=== PATIENT | female | born 1955 | race Caucasian/White ===

== ENCOUNTER → 2016-11-10 | Outpatient (CLI) | payer OTHER ==
[~2016-11-10] VITALS: Ht 165.1 cm; Wt 90.7 kg
[~2016-11-10] MED LIST: ALPH1CAP PO; ASPI81TA85 PO; ATOR1TAB21 PO; CARV3.12 PO; CHLO25TA PO; FURO40TA2 PO; LISI-538 PO; NS 1,000 ML IV SCH; PROP80TA PO; PROPOFOL 200 MG/20 ML VIAL As Ordered ONE; VITA500055 PO
--- NOTE | 2016-11-10 14:14 | ROOR ---
Patient Name: Corinne Rivera Procedure Date: 11/10/2016 1:48 PM Date of : 1955 Age: 60 Room: [facility] Gender: Female Note Status: Finalized Procedure: Colonoscopy to Cecum + ileoscopy + Biopsies Indications: Lower abdominal pain, Change in bowel habits Providers: Huy Washington MD Referring MD: Huy Barrow MD Requesting Provider: Medicines: Monitored Anesthesia Care Complications: No immediate complications. Procedure: Pre-Anesthesia Assessment: - The heart rate, respiratory rate, oxygen saturations, blood pressure, adequacy of pulmonary ventilation, and response to care were monitored throughout the procedure. The Colonoscope was introduced through the anus and advanced to the cecum, identified by appendiceal orifice and ileocecal valve. The colonoscopy was performed without difficulty. The patient tolerated the procedure well. The quality of the bowel preparation was excellent. Findings: The perianal and digital rectal examinations were normal. Non-bleeding internal hemorrhoids were found during retroflexion. The hemorrhoids were small and Grade I (internal hemorrhoids that do not prolapse). Scattered small-mouthed diverticula were found in the recto-sigmoid colon, sigmoid colon and descending colon. The terminal ileum appeared normal. Biopsies for histology were taken with a cold forceps from the ascending colon, transverse colon and descending colon for evaluation of microscopic colitis. For hemostasis, three hemostatic clips were successfully placed (MR conditional) in the transverse colon. There was no bleeding at the end of the procedure. The exam was otherwise without abnormality on direct and retroflexion views. Impression: - Non-bleeding internal hemorrhoids. - Diverticulosis in the recto-sigmoid colon, in the sigmoid colon and in the descending colon. - The examined portion of the ileum was normal. - The examination was otherwise normal on direct and retroflexion views. - Biopsies were taken with a cold forceps from the ascending colon, transverse colon and descending colon for evaluation of microscopic colitis. - Three hemostatic clips were successfully placed (MR conditional) in the transverse colon. - The exam was otherwise normal to the cecum. - The examined portion of the ileum was normal. Recommendation: - Patient has a contact number available for emergencies. The signs and symptoms of potential delayed complications were discussed with the patient. Return to normal activities tomorrow. Written discharge instructions were provided to the patient. - High fiber diet. - Discharge patient to home. - Await pathology results. - Telephone GI clinic for pathology results in 1 week. - Check Portal Online for Path Results.([email or web address]) - Return to referring physician. - The findings and recommendations were discussed with the patient's family. Huy Washington MD Huy Washington MD 11/10/2016 2:13:48 PM This report has been signed electronically. Number of Addenda: 0 Note Initiated On: 11/10/2016 1:48 PM Estimated Blood Loss: Estimated blood loss: none.
[2016-11-10 14:43] VITALS: BP 146/77
== END | disposition home or self-care (01) ==
LOC: M OPP 12:05
PROVIDERS: ATTEND Internal Medicine Gastroenterology
DX: R19.4 Change in bowel habit (principal); R10.30 Lower abdominal pain, unspecified; K64.0 First degree hemorrhoids; K57.30 Diverticulosis of large intestine without perforation or abscess without bleeding; E11.9 Type 2 diabetes mellitus without complications; K58.9 Irritable bowel syndrome, unspecified; Z88.0 Allergy status to penicillin; Z79.82 Long term (current) use of aspirin; Z79.899 Other long term (current) drug therapy

== ENCOUNTER → 2016-12-17 | Outpatient (CLI) | payer OTHER ==
[~2016-12-17] MED LIST changes: -NS 1,000 ML IV SCH; -PROPOFOL 200 MG/20 ML VIAL As Ordered ONE
--- NOTE | 2016-12-17 14:47 | REPMRS ---
Patient History The patient states she had a clinical breast exam in Patient is postmenopausal and has history of other cancer at age 56. Family history of breast cancer in mother under age 50. Digital Woman Screen Mammo: December 17, 2016 - Exam #: [id number] Bilateral CC and MLO view(s) were taken. Technologist: Maribell Toro, Technologist Prior study comparison: November 28, 2015, digital woman screen mammo performed at [facility]. November 19, 2014, digital woman screen mammo performed at [facility] to [facility]. FINDINGS: There are scattered fibroglandular densities. There has been no change in the appearance of the mammogram from the prior studies. There is a mild amount of residual fibroglandular tissue which is fairly symmetric. There is no interval development of dominant mass, architectural distortion, or clustered microcalcification suggestive of malignancy. ASSESSMENT: BI-RADS/ACR category 1 mammogram. Negative. Recommendation Routine screening mammogram in 1 year (for women over age 40). This mammogram was interpreted with the aid of an FDA-approved computer-aided dectection system. Electronically Signed By: Ricardo Cárdenas MD 12/17/16 [id number]
== END ==
LOC: M WHC 13:25
PROVIDERS: ATTEND Nurse Practitioner Family
DX: Z12.31 Encounter for screening mammogram for malignant neoplasm of breast (principal)

== ENCOUNTER → 2018-01-19 | Outpatient (CLI) | payer OTHER | LOC: M WHC 08:53 | DX: Z12.31 Encounter for screening mammogram for malignant neoplasm of breast (principal); Z80.3 Family history of malignant neoplasm of breast | CPT/HCPCS: 77067 ==

== ENCOUNTER → 2019-01-23 | Outpatient (CLI) | payer OTHER ==
[~2019-01-23] MED LIST changes: -ALPH1CAP PO; +ALPH200C2 PO
--- NOTE | 2019-01-23 15:44 | REPMRS ---
Patient History The patient states she had a clinical breast exam in 01/2019. Patient is postmenopausal and has history of other cancer at age 56. Family history of breast cancer under age 50 in mother. Taking unspecified hormones for 1 year beginning at age 62. 3D TOMOSYNTHESIS WAS PERFORMED. The [facility] lifetime risk for breast cancer is 14.2%. Digital Woman Screen Mammo: January 23, 2019 - Exam #: [id number] Bilateral CC and MLO view(s) were taken. Technologist: Yandy Lara Technologist Prior study comparison: January 19, 2018, bilateral digital woman screen mammo performed at [facility]. December 17, 2016, digital woman screen mammo performed at [facility] [employer] [facility]. FINDINGS: There are scattered fibroglandular densities. There has been no change in the appearance of the mammogram from the prior studies. There is a mild amount of residual fibroglandular tissue which is fairly symmetric. There is no interval development of dominant mass, architectural distortion, or clustered microcalcification suggestive of malignancy. Assessment: BI-RADS/ACR category 1 mammogram. Negative Mammogram. Recommendation Routine screening mammogram in 1 year (for women over age 40). This mammogram was interpreted with the aid of an FDA-approved computer-aided dectection system. Electronically Signed By: Ricardo Cárdenas MD 01/23/19 [id number]
== END ==
LOC: M WHC 12:54
PROVIDERS: ATTEND Nurse Practitioner Women's Health
DX: Z12.31 Encounter for screening mammogram for malignant neoplasm of breast (principal); Z80.3 Family history of malignant neoplasm of breast; Z78.0 Asymptomatic menopausal state; Z85.9 Personal history of malignant neoplasm, unspecified; Z79.818 Long term (current) use of other agents affecting estrogen receptors and estrogen levels

== ENCOUNTER → 2019-03-23 | Outpatient (CLI) | payer OTHER ==
--- NOTE | 2019-03-23 11:13 | REP ---
HIDA SCAN WITH GALLBLADDER EJECTION FRACTION: Following the intravenous administration of 6.4 millicuries of technetium 99m Mebrofenin, multiple images of the right upper quadrant are performed every 5 minutes for a period of 1 hour. The gallbladder is visualized at 15 minutes post injection and there is biliary to bowel transit at 30-35 minutes post injection with no scintigraphic evidence of cholecystitis. At the 1-hour jackie 8 ounces of Ensure Enlive is ingested and further imaging performed for 1 hour. Gallbladder activity is measured. The gallbladder ejection fraction is 74%, which is normal. IMPRESSION: Normal gallbladder ejection fraction. Electronically Signed by Ricardo Cárdenas MD 03/23/2019 01:17 P
== END ==
LOC: M RAD 07:48
PROVIDERS: ATTEND Nurse Practitioner Family
DX: R10.11 Right upper quadrant pain (principal); K90.49 Malabsorption due to intolerance, not elsewhere classified
CPT/HCPCS: 78227; A9537; J2805

== ENCOUNTER → 2020-04-22 | Outpatient (CLI) | payer OTHER ==
[~2020-04-22] MED LIST changes: -ASPI81TA85 PO; +ASPI81TA86 PO
--- NOTE | 2020-04-28 10:30 | REP ---
BILATERAL SCREENING MAMMOGRAM WITH 3D TOMOSYNTHESIS: 04/22/20 Family history of breast cancer is mother under age 50. Entire lifetime risk of breast cancer 13.7%. COMPARISON: Mammogram 01/23/19 as well as other prior exams. ML and CC views of both breasts performed with 3D tomosynthesis. Mild to moderate scattered fibroglandular tissue is scattered bilaterally. Volpara breast density is B. On the right CC view there is smoothly marginated nodular density medially and somewhat anteriorly measuring 5mm in diameter. This is not seen on the MLO view. Otherwise no mass or clustered microcalcifications are seen bilaterally. IMPRESSION: ACR 0, Incomplete. Smoothly marginated 5mm nodular density medial right breast only seen on the CC view. Recommend spot compression view right breast on the CC projection at that location, as well as a right ML tomographic sequence. Ultrasound may also be necessary. This mammogram was interpreted with the aide of an FDA approved computer rated detection system. Patient states her last clinical breast exam was September 2019. Send letter 0. MTDD
== END ==
LOC: M WHC 12:47
PROVIDERS: ATTEND Nurse Practitioner Family
DX: N63.10 Unspecified lump in the right breast, unspecified quadrant (principal); R92.2 Inconclusive mammogram; Z80.3 Family history of malignant neoplasm of breast

== ENCOUNTER → 2020-04-29 | Outpatient (CLI) | payer OTHER ==
--- NOTE | 2020-05-02 11:18 | REP ---
DIGITAL DIAGNOSTIC UNILATERAL RIGHT BREAST MAMMOGRAPHY: 3-VIEWS HISTORY: Screening mammography 04/22/2020 was BI-RADS Category 0 because of a possible nodular neodensity in the medial aspect of the right mid breast seen only on the craniocaudad view. Diagnostic imaging was recommended. Comparison is also made with 01/23/2019 and 01/19/2018 prior mammograms of the left breast. FINDINGS: Magnified focal spot compression CC, true ML, and MLO views of the right breast demonstrate that the area in question compresses away the stromal elements, which are unchanged from the 2018 prior mammographic images. No nodular neodensity is visible. No architectural distortion is seen. Scattered fibroglandular elements are again noted. IMPRESSION: BI-RADS Category 1 negative findings. Repeat bilateral screening mammography recommended in one year. BIRADS 1: BI-RADS/ACR category 1 mammogram. Negative mammogram. This mammogram was interpreted with the aid of an FDA approved computer-assisted detection system. Patient letter: M1. [facility] lifetime risk of breast cancer is 13.7%. [facility]
== END ==
LOC: M WHC 15:34
PROVIDERS: ATTEND Nurse Practitioner Family
DX: R92.8 Other abnormal and inconclusive findings on diagnostic imaging of breast (principal)

== ENCOUNTER → 2021-06-08 | Outpatient (CLI) | payer OTHER ==
[~2021-06-08] MED LIST changes: -LISI-538 PO; +LISI20TA33 PO
--- NOTE | 2021-06-08 13:12 | REPMRS ---
Patient History The patient states she has not had a clinical breast exam in over a year. Patient is postmenopausal and has history of other cancer at age 56. Family history of breast cancer at age 47 in mother. Taking unspecified hormones for 1 year beginning at age 62. Tomosynthesis is performed. Volpara breast density is b. [facility] lifetime risk of breast cancer 13.4%. Patient states no breast complaints today. Patient has signed MRS History Sheet. Digital Woman Screen Mammo: June 08, 2021 - Exam #: [id number] Bilateral CC and MLO view(s) were taken. Technologist: Meaghan Chang Plater Hot [employer] Prior study comparison: April 29, 2020, right breast diagnostic unilateral mammo performed at [facility] [place]. April 22, 2020, bilateral digital woman screen mammo performed at [facility]. FINDINGS: The breast tissue is heterogeneously dense. This may lower the sensitivity of mammography. There has been no change in the appearance of the mammogram from the prior studies. There is a moderate amount of residual fibroglandular tissue which is fairly symmetric. There is no interval development of dominant mass, areas of architectural distortion, or clustered microcalcification typical of malignancy. Assessment: BI-RADS/ACR category 1 mammogram. Negative Mammogram. Recommendation Routine screening mammogram in 1 year (for women over age 40). This mammogram was interpreted with the aid of an FDA-approved computer-aided dectection system. Electronically Signed By: Ricardo Cárdenas MD 06/08/21 [id number]
== END ==
LOC: M WHC 11:42
PROVIDERS: ATTEND Physician Assistant
DX: Z12.31 Encounter for screening mammogram for malignant neoplasm of breast (principal)

== ENCOUNTER → 2021-11-20 | Outpatient (REF) | payer OTHER | LOC: M LAB REF 19:12 | PROVIDERS: ATTEND Physician Assistant | DX: R30.0 Dysuria (principal) ==

== ENCOUNTER → 2022-06-18 | Outpatient (CLI) | payer OTHER | LOC: M WHC 11:50 | PROVIDERS: ATTEND Physician Assistant Medical | DX: Z12.31 Encounter for screening mammogram for malignant neoplasm of breast (principal) ==

== ENCOUNTER → 2023-07-21 | Outpatient (CLI) | payer MEDICARE, OTHER | LOC: M WHC 12:21 | PROVIDERS: ATTEND Physician Assistant Medical | DX: Z12.31 Encounter for screening mammogram for malignant neoplasm of breast (principal) ==

== ENCOUNTER → 2024-07-25 | Outpatient (CLI) | payer MEDICARE, OTHER | LOC: M WHC 11:46 | PROVIDERS: ATTEND Physician Assistant Medical | DX: Z12.31 Encounter for screening mammogram for malignant neoplasm of breast (principal) ==

== ENCOUNTER → 2025-03-13 | Outpatient (REF) | payer MEDICARE, OTHER ==
[2025-03-20 20:31] LABS: CALPROTECTIN STOOL 189 mcg/g (<50)
[2025-03-21 02:47] LABS: PANCREATIC ELASTASE STOOL > 800 mcg/g (>200)
== END ==
LOC: M LAB REF 09:48
PROVIDERS: ATTEND Internal Medicine Gastroenterology
DX: R19.7 Diarrhea, unspecified (principal); R19.4 Change in bowel habit

== ENCOUNTER → 2025-05-15 | Outpatient (REF) | payer MEDICARE, OTHER | LOC: M SFHCDERM 18:10 | PROVIDERS: ATTEND Dermatology | DX: L83 Acanthosis nigricans (principal) ==